=== PATIENT | female | born 1990 | race Caucasian/White ===

== ENCOUNTER 2019-12-03 08:13 | Day surgery (SDC) | payer SELFPAY ==
[2019-12-03 08:26] VITALS: BP 142/48; PULSE 67; RESP 18; TEMP 36.1; O2SAT 99; BMI 29.8
--- NOTE | 2019-12-03 09:05 | P.ANESASSM_ITS ---
Pre-Anesthetic Assessment Pre-Anesthetic Assessment: Height/Weight: Height 1.57 m Weight 73.936 kg Temp Pulse Resp BP Pulse Ox 97 F L 67 18 142/48 99 12/03/19 08:26 12/03/19 08:26 12/03/19 08:26 12/03/19 08:26 12/03/19 08:26 Preop Diagnosis: Family history of colon cancer Proposed Procedure: Operation Date: 12/03/19 08:35 Proposed Procedures p Colonoscopy 87570 Z12.11(Not Applicable) - Alexis Grewal MD Familial anesthetic complications: None Was Beta Adi taken within 24 h ours: N/A Last intake: Intake NPO > 8 hrs Last Liquid Date 12/02/19 Last Liquid Time 21:00 Last Solid Date 12/01/19 Last Solid Time 18:00 Social: Social History: Tobacco and No alcohol Exam: Pre-Anes Outpt Exam: alert, oriented x 3, clear to auscultation bilater ally and regular rate & rhythm Airway: Cervical ROM: WNL MP: 2 Dentition: Full Pulmonary: Pulmonary: None reported CV/HEM: CV/HEM: None reported : : None reported Hepatic: Hepatic: None reported GI: GI: None reported Metabolic: Metabolic: None reported Musc/skel: Musc/skel: None reported Neuropsych: Neuropsych: None reported Anesthetic Plan: ASA status: 1 Anesthesia: MAC Other: Patient last took her phentermine on saturday, this is below recommended 7 days. Patient was councilled on risks of anesthesia including refractory hypotension, pulmonary HTN, and arrythmias. Patient was offered choice of proceeding, given her completion of her colon prep, or rescheduling for another day. Patient would like to go ahead and proceed with anesthesia and colonoscopy today. Risk of > 500 ml blood loss (7ml/kg in children): No PFSH Anesthesia PFSH: Surgical History History of breast surgery Biopsy/I&D Family History Mother Cancer Colon Denies family history of Anesthesia complication Bleeding disorder Social History Smoking and tobacco status: former smoker History of recent travel: No Female Reproductive History: Date of last menstrual period: 11/12/19 Data Anesthesia Cardiac Studies: No Data to Display
[2019-12-03] MEDS: sodium chloride 0.9% 1,000 ML 30 ML IV (09:22)
--- NOTE | 2019-12-03 10:00 | W.PM.OPSUD ---
Surgery/Procedure H&P Update DATE OF PROCEDURE: December 03, 2019 DATE H&P PERFORMED: 11/12/19 H&P UPDATE INFORMATION: I have reviewed H&P completed within last 30 days, I have examined patient prior to procedure and No changes to prior documentation PREOP DIAGNOSIS: Family history of colon cancer PLANNED PROCEDURE: Operation Date: 12/03/19 08:35 Proposed Procedures p Colonoscopy 94388 Z12.11(Not Applicable) - Alexis Grewal MD
[2019-12-03 10:01] LABS: OR HCG Qualitative Urine Negative (Negative)
[2019-12-03 10:19] VITALS: BP 104/55; PULSE 60; RESP 15; TEMP 35.9; O2SAT 100
[2019-12-03 10:34] VITALS: BP 107/73; PULSE 63; RESP 16; TEMP 36.6; O2SAT 100
== END 2019-12-03 10:50 | disposition home or self-care (01) ==
PROVIDERS: PCP Nurse Practitioner Family; Visit Provider Surgery
PROC: 0DJD8ZZ Inspection of Lower Intestinal Tract, Via Natural or Artificial Opening Endoscopic (ICD-10-PCS; CPT 45378; principal; 2019-12-03 08:30)
DX: Z12.11 Encounter for screening for malignant neoplasm of colon (principal); Z80.0 Family history of malignant neoplasm of digestive organs; D12.5 Benign neoplasm of sigmoid colon; I10 Essential (primary) hypertension; Z87.891 Personal history of nicotine dependence
CPT/HCPCS: 12345; 45380; 81025; 84703; 88305; J2704; J7030

== ENCOUNTER 2020-05-26 08:53 | Outpatient (CLI) | payer SELFPAY ==
--- NOTE | 2020-05-26 09:14 | US_ITS ---
WS: [id number] Left breast ultrasound, 05/26/2020 Clinical Data: LT BREAST MASS;LT BREAST ABSCESS Comparison: Mammogram, 05/26/2020 Findings: There is a well bordered echogenic lesion in the 3:00 position of the left breast 1 cm from the nippl e. The lesion measured 1.66 x 2.07 x 2.27 cm. No fluid fluid levels are seen. This could represent a hematoma, seroma or less likely an abscess. US/US breast LT limited* [id number] Impression: 1. Well-defined lesion at 9:00 area of left breast which may require drainage o r excision. 2. Recommend clinical follow-up. BIRADS: 2-Benign FOLLOW UP: See Report
--- NOTE | 2020-05-26 09:14 | MM_ITS ---
WS: [id number] Bilateral diagnostic digital mammogram, 05/26/2020 Clinical Data: LT BREAST Mass; lt BREAST ABSCESS Comparison: None. Findings: There is a dense round well bordered mass measuring 2.9 cm in the 3:00 position adjacent to the left areola. No calcifications are associated with this mass and there are no fluid levels.. The remainder of the left breast is normal. The right breast is unremarkable and shows fibroglandular tissue. MM/[place] [id number] Impression: 1. Round mass at 3:00 position left breast which could represent a hematoma, an infected seroma or perhaps an abscess. This is unlikely to represent a maligna nt process. 2. Recommend left breast ultrasound. BIRADS: 2-Benign FOLLOW UP: 1 Year Follow-up The CAD typing checker was used.
== END 2020-05-26 08:54 | disposition home or self-care (01) ==
LOC: RADSHAW 08:56
PROVIDERS: PCP Nurse Practitioner Family; Visit Provider Nurse Practitioner Family
DX: N63.25 Unspecified lump in the left breast, overlapping quadrants (principal)
CPT/HCPCS: 76642; 77066

== ENCOUNTER → 2020-08-05 18:54 | Outpatient (BNVA) | payer BC, SELFPAY | PROVIDERS: PCP Nurse Practitioner Family; Visit Provider Surgery | DX: Z01.812 Encounter for preprocedural laboratory examination (principal); N63.20 Unspecified lump in the left breast, unspecified quadrant | CPT/HCPCS: 87635 ==

== ENCOUNTER 2020-08-11 09:25 | Day surgery (SDC) | payer BC, MEDICAID, SELFPAY ==
[2020-08-11 09:45] VITALS: BMI 29.2
[2020-08-11 09:53] VITALS: BP 133/64; PULSE 62; RESP 18; TEMP 36.5; O2SAT 100
--- NOTE | 2020-08-11 10:12 | ANES.PREANE2 ---
Pre-Anesthetic Assessment Pre-Anesthetic Assessment: Height/Weight: Height 1.57 m Weight 72.575 kg Temp Pulse Resp BP Pulse Ox 97.7 F 62 18 133/64 100 08/11/20 09:53 08/11/20 09:53 08/11/20 09:53 08/11/20 09:53 08/11/20 09:53 Preop Diagnosis: Family history of colon cancer Proposed Procedure: Operation Date: 08/11/20 10:55 Proposed Procedures p EXCISION OF LEFT BREAST LUMP 09038 N63.20(Left) - Alexis Grewal MD Was Beta Adi taken within 24 hours: N/A Last intake: Intake Last Liquid Date 08/10/20 Last Liquid Time 22: Last Solid Date 08/10/20 Last Solid Time : Social: Social History: Tobacco and No alcohol Exam: Pre-Anes Outpt Exam: alert, oriented x 3 and regular rate & rhythm Airway: Submandibular: WNL Cervical ROM: WNL MP: 2 Dentition: Full Pulmonary: Pulmonary: COPD CV/HEM: CV/HEM: HTN Anesthetic Plan: ASA status: 2 Anesthesia: MAC Risk of > 500 ml blood loss (7ml/kg in children): No PFSH Anesthesia PFSH: Surgical History History of breast surgery Biopsy/I&D Status post colonoscopy with polypectomy (12/03/19) sigmoid polyp x 2 Family History Mother Cancer Colon Denies family history of Anesthesia complication Bleeding disorder Social History Smoking and tobacco status: former smoker History of recent travel: No Female Reproductive History: Date of last menstrual period: 11/12/19 Data Anesthesia Cardiac Studies: No Data to Display
[2020-08-11] MEDS: sodium chloride 0.9% 1,000 ML 30 ML IV (10:25)
[2020-08-11 10:33] LABS: OR HCG Qualitative Urine Negative (Negative)
[2020-08-11] MEDS: lidocaine 1% INJ 20 mL IM (12:43)
--- NOTE | 2020-08-11 12:52 | P.OP_ITS ---
Operative Report Date of procedure: August 11, 2020 Pre-op Diagnosis: 1.Left breast mass 2 o'clock position 2. 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 Excision of left breast mass 2 o'clock position 2. Excision of chronic draining sinus 9 o'clock position left breast Specimens removed/disposition: 1. Left breast mass 2 o'clock position 2. 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 The left breast was prepped and draped in a sterile manner. Using 15 blade a curvilinear incision was made at the areola from 12:00 to 3 o'clock position and the palpable mass was dissected free from the surrounding subcutaneous tissue and sent to pathology. Wound was irrigated saline and the subcutaneous tissues approximated using interrupted 3-0 Vicryl suture and skin was closed using running subcuticular 4-0 Monocryl suture and surgical glue. Using 15 blade an elliptical incision was made around the chronic draining sinus at the site of the prior incision and drainage of breast abscess at 9 o'clock position in the left breast. Using electrocautery the track of the chronic draining sinus was dissected medially towards the nipple and the scar tissue ar ound the sinus was excised. This was sent to pathology. Wound was irrigated with saline and subcutaneous tissues approximated using interrupted 3-0 Vicryl suture and skin was closed using running subcuticular 4-0 Monocryl suture and surgical glue. The patient was transferred to same-day surgery in stable condition.
[2020-08-11 12:57] VITALS: BP 123/87; PULSE 87; RESP 18; TEMP 36.2; O2SAT 96
--- NOTE | 2020-08-11 13:06 | ANE.PACU2 ---
Inpatient post-anesthesia follow up: Airway intact: Yes Vital signs: Temperature 97.1 F Pulse Rate 87 Respiratory Rate 18 Blood Pressure 123/87 Pulse Oximetry 96 Oxygen Delivery Me thod Room Air Oxygen Flow Rate Fraction of Inspir ed Oxygen Hydration adequate: Yes Nausea and vomiting: No Pain level: 1 Mental status: Baseline
[2020-08-11 13:23] VITALS: BP 113/64; PULSE 82; RESP 18; O2SAT 96
--- NOTE | 2020-08-16 12:26 | W.PM.OPSUD ---
Surgery/Procedure H&P Update DATE OF PROCEDURE: August 11, 2020 DATE H&P PERFORMED: 07/29/20 H&P UPDATE INFORMATION: I have reviewed H&P completed within last 30 days, I have examined patient prior to procedure and No changes to prior documentation PREOP DIAGNOSIS: Left breast mass x2 PLANNED PROCEDURE: Operation Date: 08/11/20 10:55 Proposed Procedures p EXCISION OF LEFT BREAST LUMP 16995 N63.20(Left) - Alexis Grewal MD
== END 2020-08-11 13:47 | disposition home or self-care (01) ==
PROVIDERS: PCP Nurse Practitioner Family; Visit Provider Surgery
PROC: (CPT 19120; principal; 2020-08-11 10:55)
DX: D24.2 Benign neoplasm of left breast (principal); N60.42 Mammary duct ectasia of left breast; Z87.891 Personal history of nicotine dependence; J44.9 Chronic obstructive pulmonary disease, unspecified; I10 Essential (primary) hypertension
CPT/HCPCS: 19120; 12345; 84703; 88305; J0690; J1100; J1885; J2250; J2405; J3010; J3490; J7030

== ENCOUNTER 2020-08-16 10:25 | Outpatient (CLI) | payer BC, MEDICAID, SELFPAY ==
--- NOTE | 2020-08-16 10:38 | US_ITS ---
WS: [id number] THYROID ULTRASOUND (TI-RADS CRITERIA) History: Hypothyroidism.. Technique: Ultrasound examination of the thyroid and adjacent soft tissues is performed. FINDINGS: Right lobe: 5.7 cm x 1.9 cm x 1.6 cm. Volume: 8.6 cm3. Mildly enlarged thyroid. There are multiple subcentimeter hypoechoic nodules within the gland. No nod ules greater than 1 cm. These appear to be colloid cyst with echogenic punctate foci and ring down ar tifact. No suspicious mass or nodule. No punctate foci or calcification of suspicion. Left lobe: 5.3 cm x 2.0 cm x 0.9 cm. Volume: 5.2 cm3. Mildly enlarged gland with numerous colloid cysts. No suspicious mass. Isthmus: 0.2 cm. Small cervical chain lymph nodes. US/US thyroid [id number] Impression: TR1 Recommendation:No FNA or follow-up. Bilateral subcentimeter nodules appear to be colloid cyst. There are no suspici ous masses identified for biopsy or follow-up.
[2020-08-16 11:49] LABS: Basophils # 0.1 10^3/uL (0.0-0.1); Basophils % 0.5 %; Eosinophils # 0.6 10^3/uL (0.0-0.8); Eosinophils % 4.3 %; Hematocrit 44.6 % (37.0-47.0); Hemoglobin 14.5 g/dL (11.5-15.3); Lymphocytes # 2.8 10^3/uL (0.8-4.8); Lymphocytes % 20.4 %; Mean Corpuscular HGB Conc 32.5 g/dL (30.0-36.0); Mean Corpuscular Hemoglobin 29.7 pg (28.0-34.0); Mean Corpuscular Volume 91.2 fL (81-99); Mean Platelet Volume 9.5 fL (7.4-10.4); Monocytes # 0.9 10^3/uL (0.2-0.9); Monocytes % 6.1 %; Neutrophils # 9.41 10^3/uL (1.8-7.7); Neutrophils % 68.1 %; Nucleated Red Blood Cells % 0 %; Platelet Count 495 10^3/cmm (130-400); Red Blood Count 4.89 10^6/uL (4.1-5.3); Red Cell Distribution Width 13.2 % (12.1-15.1); White Blood Count 13.9 10^3/uL (4.0-10.0)
[2020-08-16 12:26] LABS: Alanine Aminotransferase 13 U/L (0-33); Albumin Level 4.1 g/dL (3.5-5.2); Alkaline Phosphatase 70 IU/L (35-105); Aspartate Amino Transferase 8 U/L (0-32); Blood Urea Nitrogen 11 mg/dL (6-20); Calcium 9.3 mg/dL (8.5-10.5); Carbon Dioxide 30 mmol/L (22-29); Chloride 99 mmol/L (98-107); Cholesterol 301 mg/dL (0-200); Globulin 3.7 g/dL (1.3-4.6); Glomerular Filtration Rate 143.9 mL/min (90-130); Glucose 85 mg/dL (65-115); HDL Cholesterol 64 mg/dL (60-100); LDL Cholesterol Calculated 200 mg/dL (50-129); LDL HDL Ratio 3.13 RATIO (0.00-3.22); Osmolality Calculated 283 mOsm/kg (285-295); Sodium 137 mmol/L (136-145); Thyroid Stimulating Hormone 0.69 uIU/mL (0.27-4.20); Total Bilirubin 0.4 mg/dL (0.15-1.2); Total Protein 7.8 g/dL (6.6-8.7); Triglycerides 185 mg/dL (0-150); Vitamin B12 406 pg/mL (232-1245)
[2020-08-16 13:48] LABS: Estmated Average Glucose 105; Hemoglobin A1C 5.3 % (4.0-6.0)
[2020-08-17 10:24] LABS: T4 Total 8.1 mcg/dL (5.1-11.9)
== END 2020-08-16 10:26 | disposition home or self-care (01) ==
LOC: US 10:31
PROVIDERS: PCP Nurse Practitioner Family; Visit Provider Nurse Practitioner Family
DX: E03.9 Hypothyroidism, unspecified (principal)
CPT/HCPCS: 36415; 76536; 80053; 80061; 82607; 83036; 84436; 84443; 85025